=== PATIENT | female | born 1960 | race Two or more races ===

== ENCOUNTER 2019-02-24 17:44 | Emergency (ER) | payer OTHER ==
[~2019-02-24] VITALS: Ht 154.9 cm; Wt 63.5 kg
[2019-02-24 18:56] VITALS: BP 145/70
[2019-02-24] MEDS ORDERED: DexAMETHasone SOD PHOS 10MG/1ML VIAL INJ IM ONE (19:15)
[2019-02-24] MEDS ORDERED: HYDROcodone-ACET 5/325MG TAB PO ONE (19:15)
[2019-02-24] MEDS ORDERED: BACLOFEN 10 MG TAB PO ONE (19:15)
== END 2019-02-24 19:56 | disposition home or self-care (01) ==
LOC: ER 17:44
DX: S39.92XA Unspecified injury of lower back, initial encounter (principal); M62.838 Other muscle spasm; X58.XXXA Exposure to other specified factors, initial encounter; Y93.89 Activity, other specified; Y92.69 Other specified industrial and construction area as the place of occurrence of the external cause; Y99.8 Other external cause status
CPT/HCPCS: 72100; 96372; 99283; J1100

== ENCOUNTER 2024-03-12 14:05 | Emergency (ER) | payer SELFPAY ==
[~2024-03-12] VITALS: Ht 162.6 cm; Wt 76.8 kg
[2024-03-12 15:03] VITALS: BP 122/54; PULSE 75; RESP 18; TEMP 98.9; O2SAT 98
[2024-03-12] MEDS ORDERED: METF-370 PO (15:28)
[2024-03-12] MEDS ORDERED: GLIP10TA21 PO (15:28)
[2024-03-12] MEDS ORDERED: FLE50T PO (15:28)
[2024-03-12] MEDS ORDERED: LEV100T PO (15:28)
[2024-03-12] MEDS ORDERED: TIRZ5INJ SC (15:28)
[2024-03-12] MEDS ORDERED: MET25T PO (15:28)
[2024-03-12] MEDS ORDERED: GABA-1250 PO (15:28)
[2024-03-12] MEDS ORDERED: APIX5TAB PO (15:28)
[2024-03-12] MEDS ORDERED: INSLANTI SC (15:28)
== END 2024-03-12 15:37 | disposition home or self-care (01) ==
LOC: ER 14:05
DX: I10 Essential (primary) hypertension (principal); I48.91 Unspecified atrial fibrillation; E03.9 Hypothyroidism, unspecified; E11.9 Type 2 diabetes mellitus without complications; Z76.0 Encounter for issue of repeat prescription; Z79.84 Long term (current) use of oral hypoglycemic drugs; Z79.899 Other long term (current) drug therapy; Z79.4 Long term (current) use of insulin